=== PATIENT | male | born 1960 | race American Indian/Alaskan Native ===

== ENCOUNTER 2018-10-29 14:59 | Outpatient (CLI) | payer BC ==
--- NOTE | 2018-10-29 15:20 | CT ---
EXAM: CT chest without contrast per low-dose cancer screening protocol HISTORY: History of smoking and nicotine dependence COMPARISON: None TECHNIQUE: Multiple contiguous axial images were obtained in a CT of the chest without contrast per l ow-dose cancer screening protocol. Sagittal and coronal reformats were performed. FINDINGS: Pulmonary nodules: There is an area of scarring in the right middle lobe. Paraseptal emphysematous ch anges are seen in the apices. No suspicious pulmonary nodules are seen. No focal infiltrates are seen. Pleural space: No pneumothorax or pleural effusion are seen. Heart: The heart is normal in size. Mediastinum: No hilar or mediastinal lymphadenopathy appreciated on this limited noncontrast examinat ion. Bones: Degenerative changes in the spine.. Visualized subdiaphragmatic structures: Unremarkable. IMPRESSION: Lung RADS category 1-negative.
== END 2018-10-29 15:00 | disposition home or self-care (01) ==
LOC: CT 14:59
PROVIDERS: ATTEND Family Medicine
DX: F17.210 Nicotine dependence, cigarettes, uncomplicated (principal)
CPT/HCPCS: G0297

== ENCOUNTER 2022-07-11 11:36 | Outpatient (CLI) | payer BC | END 2022-07-11 11:37 | disposition home or self-care (01) | LOC: BICRAD 11:36 | PROVIDERS: ATTEND Family Medicine | DX: R50.9 Fever, unspecified (principal) | CPT/HCPCS: 71046 ==

== ENCOUNTER 2022-08-23 15:37 | Outpatient (CLI) | payer BC | END 2022-08-23 15:38 | disposition home or self-care (01) | LOC: BICCT 15:37 | PROVIDERS: ATTEND Family Medicine | DX: Z12.2 Encounter for screening for malignant neoplasm of respiratory organs (principal); F17.210 Nicotine dependence, cigarettes, uncomplicated; D35.02 Benign neoplasm of left adrenal gland; R91.8 Other nonspecific abnormal finding of lung field | CPT/HCPCS: 71271 ==

== ENCOUNTER 2022-10-16 22:40 | Emergency (ER) | payer BC ==
[~2022-10-16 22:40] MED LIST: Iopamidol-370 76% 500 ML MDV (1 ML CHARGE) ONE
[2022-10-16 23:23] LABS: #Basophils 0.1 thou/uL (0.0-0.2); #Eosinphils 0.2 thou/uL (0.0-0.7); #Monocytes 0.8 thou/uL (0.11-0.59); #Neutrophils 10.1 thou/uL (1.40-6.50); %Basophils 0.5 % (0.0-1.0); %Eosinophils 1.4 % (0.0-10.0); %Lymphocytes 15.1 % (21.0-51.0); %Monocytes 6.1 % (0.0-10.0); %Neutrophils 76.5 % (42.0-75.0); Hemoglobin 16.3 g/dL (14.0-18.0); Mean Corpuscular HGB CONC 35.2 g/dL (32.0-36.0); Mean Corpuscular Hemoglobin 32.2 pg (27.0-31.0); Mean Corpuscular Volume 91.5 fl (78.0-98.0); Mean Platelet Volume 10.3 fL (7.4-10.4); Platelet Count 169 10x3/uL (130-400); RBC Distribution Width 12.2 % (11.5-14.5); Red Blood Cell (RBC) Count 5.06 mill/uL (4.70-6.10); White Blood Cell (WBC) Count 13.2 10x3/uL (4.8-10.8)
[2022-10-16] MEDS ORDERED: Morphine 4 MG/ML VIAL ONE (23:23)
[2022-10-16] MEDS ORDERED: Pantoprazole 40 MG VIAL ONE (23:23)
[2022-10-16] MEDS ORDERED: Ondansetron PF 4 MG/2 ML Vial ONE (23:23)
[2022-10-16 23:49] LABS: ALT (SGPT) 11 U/L (8-55); AST (SGOT) 18 U/L (5-34); Albumin 4.3 g/dL (3.4-4.8); Alkaline Phosphatase 78 U/L (40-110); Anion Gap 18 mmol/L (10-20); BUN (Urea Nitrogen) 10 mg/dL (8.4-25.7); Bilirubin, Total 0.6 mg/dL (0.2-1.2); CK (CPK) 34 U/L (30-200); Calc. Creatinine Clearance 0 mL/min (70-130); Calcium 9.8 mg/dL (7.8-10.44); Carbon Dioxide 21 mmol/L (23-31); Chloride 99 mmol/L (98-107); Estimated GFR 79; Globulin 2.9 g/dL (2.4-3.5); Glucose 111 mg/dL (80-115); Lipase 19 U/L (8-78); Potassium 3.6 mmol/L (3.5-5.1); Protein, Total 7.2 g/dL (5.8-8.1); Sodium 134 mmol/L (136-145)
[2022-10-17] MEDS ORDERED: Morphine 4 MG/ML VIAL ONE ×2 (00:53→03:19)
== END 2022-10-17 04:14 | disposition short-term general hospital (02) ==
LOC: ERS 22:40
DX: K22.3 Perforation of esophagus (principal); D72.829 Elevated white blood cell count, unspecified; I10 Essential (primary) hypertension; F17.210 Nicotine dependence, cigarettes, uncomplicated; Z79.899 Other long term (current) drug therapy
CPT/HCPCS: 71045; 74177; 80053; 82550; 83690; 83880; 84484; 85025; 93005; 96374; 96375; 96376; C9113; J2270; J2405; Q9967